=== PATIENT | female | born 1945 ===

== ENCOUNTER 2021-12-02 06:35 | Day surgery (SDC) | payer OTHER | END 2021-12-02 12:25 | disposition home or self-care (01) | LOC: AMB-ENDOS 06:35 → CIR.AMB 14:30 | PROVIDERS: ATTEND Colon & Rectal Surgery | DX: D12.0 Benign neoplasm of cecum (principal); D12.5 Benign neoplasm of sigmoid colon; D12.3 Benign neoplasm of transverse colon; Z20.822 Contact with and (suspected) exposure to COVID-19; K57.30 Diverticulosis of large intestine without perforation or abscess without bleeding ==

== ENCOUNTER 2024-03-14 05:20 | Day surgery (SDC) | payer OTHER ==
[2024-03-14] MEDS ORDERED: ONDANSETRON HCL 2 MG/ML VIAL IV ONE (10:15)
[2024-03-14] MEDS ORDERED: fentaNYL CITRATE 50 MCG/ML AMPUL IV PUSH ONE (10:15)
[2024-03-14] MEDS ORDERED: DIPHENHYDRAMINE HCL 50 MG/ML VIAL 1ML IV ONE (10:15)
[2024-03-14] MEDS ORDERED: MIDAZOLAM HCL 2 MG/2 ML VIAL IV ONE (10:15)
== END 2024-03-14 11:30 | disposition home or self-care (01) ==
LOC: AMB-ENDOS 05:20
PROVIDERS: ATTEND Colon & Rectal Surgery
DX: K63.5 Polyp of colon (principal); K57.30 Diverticulosis of large intestine without perforation or abscess without bleeding; D12.0 Benign neoplasm of cecum; Z88.0 Allergy status to penicillin; Z91.041 Radiographic dye allergy status